=== PATIENT | male | born 1965 | race Two or more races ===

== ENCOUNTER 2018-03-06 11:30 | Inpatient (IN) | payer OTHER ==
[~2018-03-06] VITALS: Ht 172.7 cm; Wt 99.8 kg
[2018-03-13] MEDS ORDERED: NKM (11:32)
[2018-03-16] VITALS (10 sets, daily range): BP systolic 94–149; BP diastolic 56–90
[2018-03-16] MEDS ORDERED: ceFAZolin sod 2 GM in D5W 110 ML IVPB SCH (07:00)
[2018-03-16] MEDS ORDERED: Succinylcholine 20mg/ml 10ml vial ONE (07:00)
[2018-03-16] MEDS ORDERED: Zemuron 50mg/5ml Inj IV ONE (07:00)
[2018-03-16] MEDS ORDERED: EPINEPHrine 1mg/1ml Amp ONE ×2 (07:10→08:42)
[2018-03-16] MEDS ORDERED: Thrombin 5000 units spray kit TOPIC ONE (07:10)
[2018-03-16] MEDS ORDERED: Thrombin 5000 units TOPIC ONE (07:11)
[2018-03-16] MEDS ORDERED: Bacitracin 50000 Units Vial ONE (07:11)
[2018-03-16] MEDS ORDERED: Bupivacaine 0.5% Inj 30 ml vial INJ ONE ×2 (07:11→08:42)
[2018-03-16] MEDS ORDERED: Gelfoam Absorbable 1gm powder pkt TOPIC ONE (07:11)
[2018-03-16] MEDS ORDERED: fentaNYL 100 mcg/2 mL IV ONE (07:14)
[2018-03-16] MEDS ORDERED: Midazolam 2mg/2ml Inj ONE (07:14)
--- NOTE | 2018-03-16 07:29 | Pre-Procedure Note/Attestation ---
Pre-Procedure Note/Attestation Complete Prior to Procedure Procedure Narrative: Left L5S1 microdecompression with foraminotomies Attestation I attest that I discussed the nature of the procedure; its benefits; risks and complications; and alternatives (and the risks and benefits of such alternatives ), prior to the procedure, with the patient (or the patient's legal administrative representative). I attest that, if there was a reasonable possibility of needing a blood transfusion, the patient (or the patient's legal administrative representative) was given the [facility] standardized written summary, pursuant to the Jeff Dea Blood Safety Act ([place] Health and Safety Code # 1645, as amended). I attest that I re-evaluated the patient just prior to the surgery and that there has been no change in the patient's H&P, except as documented below: Zachariah Mendoza MD Mar 16, 2018 07:29
[2018-03-16] MEDS ORDERED: Morphine Sulfate 2mg/ml Inj IV PRN (07:30)
[2018-03-16] MEDS ORDERED: Norco 5mg/325mg tab ORAL PRN (07:30)
[2018-03-16] MEDS ORDERED: Morphine Sulfate 4mg/ml Inj IV PRN ×2 (07:30)
[2018-03-16] MEDS ORDERED: Naloxone 0.4mg/ml Inj IVP PRN (07:30)
[2018-03-16] MEDS ORDERED: HYDROcodone/Acetamin 7.5/325 tab ORAL PRN ×2 (07:30)
[2018-03-16] MEDS ORDERED: Vancomycin 1gm inj IVPB ONE (07:30)
[2018-03-16] MEDS ORDERED: Morphine Sulfate 10mg/ml Inj ONE (08:20)
[2018-03-16] MEDS ORDERED: Sodium Chloride 10ml vial INJ ONE (08:20)
[2018-03-16] MEDS ORDERED: Neostigmine 1mg/ml 10ml Inj ONE (08:36)
[2018-03-16] MEDS ORDERED: Glycopyrrolate 0.2mg/ml 1ml Vial ONE (08:36)
[2018-03-16] MEDS ORDERED: Ketorolac 30mg Inj ONE (08:36)
--- NOTE | 2018-03-16 08:50 | Anethesia Preoperative Eval ---
Anesthesia Pre-op PMH/ROS General Date of Evaluation: Mar 16, 2018 Time of Evaluation: 07:20 Anesthesiologist: Angelic ASA Score: ASA 2 Mallampati Score Class I : Soft palate, uvula, fauces, pillars visible Class II: Soft palate, uvula, fauces visible Class III: Soft palate, base of uvula visible Class IV: Only hard plate visible Mallampati Classification: Class II Surgeon: Reji Diagnosis: Lumbar radiculopathy Surgical Procedure: L5-S1 laminotomy with decompression Anesthesia History: none Social History: smoking - h/o Family History: no anesthesia problems Allergies: Coded Allergies: No Known Allergies (Unverified , 03/16/18) Medications: see eMAR Past Medical History Cardiovascular: Reports: HTN - borderline; Denies: CAD, MT, valve dz, arrhythmia, other Pulmonary: Denies: asthma, COPD, BIRD, other Gastrointestinal/Genitourinary: Reports: GERD - mild; Denies: CRI, ESRD, other Neurologic/Psychiatric: Reports: other - chronic pain; Denies: dementia, CVA, depression/anxiety, TIA Endocrine: Denies: DM, hypothyroidism, steroids, other HEENT: Denies: cataract (L), cataract (R), glaucoma, [place] (L), [place] (R), other Hematology/Immune: Denies: anemia, DVT, bleeding disorder, other Musculoskeletal/Integumentary: Denies: OA, RA, DJD, DDD, edema, other Other: other - overweight PMH Narrative: as above PSxH Narrative: R ankle ORIF Anesthesia Pre-op Phys. Exam Physician Exam Last Vital Signs Date Time Temp Pulse Resp B/P (MAP) Pulse Ox O2 Delivery O2 Flow Rate FiO2 03/16/18 06:32 98.5 78 18 149/90 (109) 97 98.5 03/16/18 06:20 Room Air Constitutional: NAD Neurologic: CN 2-12 intact Cardiovascular: RRR, no M/R/G Respiratory: CTA Gastrointestinal: S/NT/ND Airway Exam Mallampati Score: Class II MO: full Neck: short ROM: full Teeth: intact Dentures: no upper, no lower Anesthesia Pre-op A/P Labs see chart Studies Pre-op Studies: EKG - NSR, CXR - WNL Risk Assessment & Plan Assessment: ASA 2 Plan: GA with ETT prone position neuromonitoring Status Change Before Surgery: No Pre-Antibiotics Drug: Ancef 2gr. Given Within 1 Hr of Incision: Yes Time Given: 08:02 Chet Atwood MD Mar 16, 2018 08:50
[2018-03-16] MEDS ORDERED: LR 1000ml 1,000 ML IVLG SCH (08:51)
[2018-03-16] MEDS ORDERED: Meperidine 50mg/ml Inj(FOR RIGORS ONLY) IV PRN (09:00)
[2018-03-16] MEDS ORDERED: Ketorolac 30mg Inj IV PRN (09:00)
[2018-03-16] MEDS ORDERED: fentaNYL 100 mcg/2 mL IV PRN (09:00)
[2018-03-16] MEDS ORDERED: DiphenhydrAMINE 50mg/ml Inj IVP PRN (09:00)
[2018-03-16] MEDS ORDERED: Acetaminophen (Non formulary) 100 ML IV SCH (09:30)
--- NOTE | 2018-03-16 10:37 | Immediate Post-Op Evaluation ---
Immediate Post-Op Evalulation Immediate Post-Op Evalulation Procedure: L5-S1 laminotomy with decompression Date of Evaluation: Mar 16, 2018 Time of Evaluation: 10:36 IV Fluids: 1400 Blood Products: none Estimated Blood Loss: 50 Urinary Output: none Blood Pressure Systolic: 104 Blood Pressure Diastolic: 56 Pulse Rate: 72 Respiratory Rate: 20 O2 Sat by Pulse Oximetry: 99 Temperature (Fahrenheit): 97.9 Pain Score (1-10): 2 Nausea: No Vomiting: No Complications none Patient Status: reacts, patent, extubated, none Chet Atwood MD Mar 16, 2018 10:37
--- NOTE | 2018-03-16 12:12 | Brief Operative Note ---
Immediate Post Operative Note Operative Note Pre-op Diagnosis: L L5s1 stenosis and radiculopathy Procedure: L L5S1 microdecompression and foraminotomy Post-op Diagnosis: same as pre-op Findings: consistent w/pre-op dx studies Surgeon: Reji Insurance Manager: Mo Anesthesiologist: Angelic Anesthesia: general Specimen: yes Complications: none Condition: stable Fluids: 1l Estimated Blood Loss: minimal - 15cc Drains: none Implant(s) used?: No Zachariah Mendoza MD Mar 16, 2018 12:12
--- NOTE | 2018-03-16 13:04 | History and Physical ---
History of Present Illness General Date patient seen: Mar 16, 2018 Present Illness HPI 53 year old male with hx of back pain, was diagnosed to have L L5s1 stenosis and radiculopathy, admitted for L L5S1 microdecompression and foraminotomy. Post operatively, he is admitted to surgical floor for post-op care. Allergies: Coded Allergies: No Known Allergies (Unverified , 03/16/18) Medication History Scheduled No Known Medications* (NKM - No Known Medications*), 0 ., (Reported) Patient History Healthcare decision maker TAN FRIED - EX - Resuscitation status Full Code Advanced Directive on File Past Medical/Surgical History Past Medical/Surgical History: (1) Lumbar radiculopathy Review of Systems All Other Systems: negative except mentioned in HPI Physical Exam General Appearance: WD/WN, no apparent distress Lines, tubes and drains: peripheral HEENT: normocephalic, atraumatic Neck: non-tender, normal alignment Respiratory/Chest: chest wall non-tender, lungs clear Breasts: no masses Cardiovascular/Chest: normal peripheral pulses Abdomen: normal bowel sounds Genitourinary/Rectal: normal genital exam Extremities: normal range of motion Last 24 Hour Vital Signs Date Time Temp Pulse Resp B/P (MAP) Pulse Ox O2 Delivery O2 Flow Rate FiO2 03/16/18 12:00 97.0 78 20 103/59 (74) 96 97.0 03/16/18 11:15 98.8 65 18 118/62 100 Nasal Cannula 3 98.8 03/16/18 11:00 65 17 115/68 100 Nasal Cannula 3 03/16/18 10:45 74 19 128/69 100 Simple Mask 6 03/16/18 10:37 208.2 72 20 99 03/16/18 10:35 78 21 123/83 99 Simple Mask 6 03/16/18 10:30 74 20 94/56 99 Simple Mask 6 03/16/18 10:26 98.2 72 24 102/59 99 Simple Mask 6 98.2 03/16/18 06:32 98.5 78 18 149/90 (109) 97 98.5 03/16/18 06:20 Room Air Intake and Output 03/15/18 03/16/18 19:00 07:00 # Voids 1 Height (Feet): 5 Height (Inches): 8.00 Weight (Pounds): 220 Medications Current Medications Medications (Trade) Dose Ordered Sig/Irasema Route PRN Reason Start Time Stop Time Status Last Admin Dose Admin Acetaminophen/ Hydrocodone Bitart (Gregory 5/325) 1 tab Q3H PRN ORAL pain score 1-3 03/16/18 07:30 03/23/18 07:29 UNV Acetaminophen/ Hydrocodone Bitart (Gregory 7.5/325) 1 tab Q3H PRN ORAL pain score 4-6 03/16/18 07:30 03/23/18 07:29 UNV Acetaminophen/ Hydrocodone Bitart (Gregory 7.5/325) 2 tab Q3H PRN ORAL pain scale 7-10 03/16/18 07:30 03/23/18 07:29 UNV Cefazolin Sodium 1 gm/Dextrose 55 ml @ 110 mls/hr EVERY 8 HOURS IV 03/16/18 14:00 03/17/18 06:29 UNV Dextrose/Sodium Chloride 1,000 ml @ 100 mls/hr Q10H IV 03/16/18 07:29 04/15/18 07:28 UNV Diphenhydramine HCl (Benadryl) 25 mg Q15M PRN IVP Itching 03/16/18 09:00 03/16/18 16:00 Docusate Sodium (Colace) 100 mg TWICE A DAY ORAL 03/16/18 09:00 04/15/18 08:59 UNV Fentanyl Citrate (Sublimaze 100 mcg/2 mL) 50 mcg Q10M PRN IV Moderate Pain (Pain Scale 4-6) 03/16/18 09:00 03/16/18 16:00 Ketorolac Tromethamine (Toradol 30mg) 30 mg Q1H PRN IV Severe Breakthru Pain (>7) 03/16/18 09:00 03/16/18 16:00 Meperidine HCl (Demerol) 25 mg Q15M PRN IV chills 03/16/18 09:00 03/16/18 16:00 Morphine Sulfate (Morphine Sulfate) 2 mg Q4H PRN IV Mild Pain (Pain Scale 1-3) 03/16/18 07:30 03/23/18 07:29 UNV Morphine Sulfate (Morphine Sulfate) 4 mg Q3H PRN IV Severe Pain (Pain Scale 7-10) 03/16/18 07:30 03/23/18 07:29 UNV Morphine Sulfate (Morphine Sulfate) 4 mg Q4H PRN IV Moderate Pain (Pain Scale 4-6) 03/16/18 07:30 03/23/18 07:29 UNV Naloxone HCl (Narcan) 0.1 mg PRN PRN IVP RR<12/min, pt unarousable 03/16/18 07:30 04/15/18 07:29 UNV Ondansetron HCl (Zofran) 4 mg Q1H PRN IVP Nausea & Vomiting 03/16/18 09:00 03/16/18 16:00 Assessment/Plan Problem List: (1) L L5S1 microdecompression Assessment/Plan symptomatic treatment post op care dvt prophylaxis. Mckenna Ramirez MD Mar 16, 2018 13:04
[2018-03-16] MEDS ORDERED: D5 1/2NS 1,000 ML IV SCH (14:00)
--- NOTE | 2018-03-16 14:19 | Diagnostic Imaging Report ---
Indication: Back pain Comparison: None Findings: Single crosstable views of the lumbar spine were obtained. Total fluoroscopic time 8.5 seconds. Instrumentation noted posterior to L5-S1. IMPRESSION: Intraoperative imaging
[2018-03-16] MEDS ORDERED: TRAMADOL HCL50 MG ORAL (15:08)
[2018-03-16] MEDS ORDERED: SOMA350 MG PO (15:09)
[2018-03-16] MEDS ORDERED: CEPHALEXIN500 MG ORAL (15:11)
[2018-03-16] MEDS ORDERED: ceFAZolin sod 1 GM in D5W 55 ML IV SCH (15:45)
[2018-03-16] MEDS ORDERED: Docusate 100mg cap ORAL SCH (18:00)
--- NOTE | 2018-03-16 23:45 | Operative Note - Dictated ---
PREOPERATIVE DIAGNOSIS: L5-S1 disk bulge with stenosis and left lower extremity radiculopathy. POSTOPERATIVE DIAGNOSIS: L5-S1 disk bulge with stenosis and left lower extremity radiculopathy. PROCEDURE PERFORMED: 1. Left L5-S1 medial facetectomy, inter-lumbar laminotomy, and foraminotomy and decompression of the exiting left L5 nerve root and the traversing left S1 nerve root. 2. Intraoperative use of microscope. 3. Intraoperative use of fluoroscopy. SURGEON: Zachariah Mendoza M.D. CAREER DEVELOPMENT DIRECTOR: Wisam Hassan M.D. ANESTHESIA: General endotracheal anesthesia. ANESTHESIOLOGIST: Chet Atwood M.D. INTRAOPERATIVE FINDINGS: Severe foraminal stenosis with the left exiting L5 nerve root and mild lateral recess stenosis with lateral recess disc bulge. EBL: 15 mL. IV FLUIDS: 1 liter of crystalloid. INDICATIONS: This is a pleasant male, who failed nonoperative treatment and options for above treatment was given. Risks, alternatives, and benefits were discussed with the patient at length. Risks include, but are not limited to, anesthesia complications including , medical complications including liver, kidney, and cardiopulmonary deficits, bleeding, infection, neurovascular injury, need for revision surgery, need for future fusion surgery, as well as other complications. The patient understood and wished to proceed. Written and verbal consent was given. DESCRIPTION OF OPERATION: The patient was brought into the operating room supine on the stretcher. Appropriate IV lines were placed by the anesthesiologist. Subsequently, a 2 g of Ancef was administered. A surgical time-out was called. Anesthesia was induced and all bony prominences were well padded. Sequential compression devices were placed on to the bilateral lower extremities. The interspace was preoperatively found via fluoroscopy and an indelible marker was used to bridger the midline at L5-S1. The patient was prepped and draped in the usual sterile fashion with chlorhexidine scrub, ChloraPrep, and Ioban draping. An incision was carried out over L5-S1. Superficial hemostasis was achieved. At this point, with monopolar cautery, a left-sided approach was made to the lamina as the paraspinal muscles were dissected off the lamina and lateral joint capsule was well preserved and a neurodiagnostic tech retractor system was set into place. A radiopaque marker was placed at the lower pedicle level and the S1 pedicle was identified and the L5-S1 interspace was positively identified. At this point, attention was diverted to doing the decompression with a high-speed drill, #2 through #5 Kerrison punches, straight and curved curettes, and inter-lumbar laminotomy medial facetectomy was done. The ligamentum flavum was hypertrophied and removed. There was significant hypertrophy of the superior articular facet with severe foraminal stenosis as well as lateral recess stenosis with the traversing S1 nerve root. A complete decompression here was done with the use of #1 Kerrison punches as well as Microsect #1 and #2 instruments with dental, the foramina was checked back after decompression and was found to be patent the L5 nerve was now free. The S1 nerve was free. The floor of the canal was checked due to the disk bulge and after the lateral recess and foraminal decompression was no longer causing any impingement on the neural elements and therefore a formal diskectomy was not necessary. Valsalva was done at 40 mmHg. There was no CSF leak. The wound was copiously irrigated with triple antibiotic solution. Attention was now diverted to closure. A 1 g of vancomycin powder was placed subfascially and suprafascially. The dorsal lumbar fascia was closed with #1 Vicryl sutures in a watertight interrupted fashion. The subdermal and subcuticular layers were closed with 2-0 Vicryl sutures. The skin was closed with Dermabond. Sterile dressing tape was placed. The patient was turned supine, was extubated in stable condition, and was found to be neurovascularly intact. He was given a prescription for [place] and Naprosyn as well as a postoperative appointment in 10 days. Zachariah Mendoza M.D. DR: ALFONSO JOB#: [id number] CC:
[2018-03-17 08:28] VITALS: BP 137/85
--- NOTE | 2018-03-17 08:28 | 48 Hour Post Anesthesia Eval ---
Post Anesthesia Evaluation Procedure: L5-S1 laminotomy with decompression Date of Evaluation: Mar 17, 2018 Blood Pressure Systolic: 137 0: 85 Pulse Rate: 82 Respiratory Rate: 20 Temperature (Fahrenheit): 97.4 O2 Sat by Pulse Oximetry: 96 Airway: patent Nausea: No Vomiting: No Pain Intensity: 2 Hydration Status: adequate Cardiopulmonary Status: No complication Mental Status/LOC: patient returned to baseline Follow-up Care/Observations: As per surgery. Patient has been discharged Post-Anesthesia Complications: No anesthetic complication Follow-up care needed: N/A Jeff Mcleod MD Mar 17, 2018 08:28
--- NOTE | 2018-03-19 06:59 | Discharge Summary ---
Discharge Summary Hospital Course Date of Admission Mar 16, 2018 at 05:57 Date of Discharge Mar 16, 2018 at 18:35 Admitting Diagnosis lumbar radiculopathy Reason for Hospitalization: Elective surgery PACO Lala is a 53 year old male who was admitted on Mar 16, 2018 at 05:57 for Lumbar Radiculopathy. Patient was admitted for elective surgery Consultations Dr. Ramirez-IM Procedures s/p 03/15/[address] Mendoza 1. Left L5-S1 medial facetectomy, inter-lumbar laminotomy, and foraminotomy and decompression of the exiting left L5 nerve root and the traversing left S1 nerve root. 2. Intraoperative use of microscope. 3. Intraoperative use of fluoroscopy. Hospital Course s/p surgery Course of recovery uneventful neurovascularly intact dressing clean dry and intact pain management addressed, pain controlled ambulated with physical therapy, fall precaution maintained, initially IV fluids diet as tolerated, able to tolerate voided freely bowel regimen instituted spinal precautions reviewed stable for discharge home discharge instruction provided outpatient follow-up with surgeon as advised FINAL DIAGNOSES L5-S1 lumbar radiculopathy severe foraminal stenosis s/p L5-S1 laminotomy with decompression Discharge Medications Continued Medications: Carisoprodol* (Soma*) 350 Mg Tablet 350 MG PO TID PRN for Spasms, #30 TAB (This prescription has been renewed) Cephalexin* (Keflex*) 500 Mg Capsule 500 MG ORAL QID for 5 Days, #20 CAP 0 Refills (This prescription has been renewed) Tramadol Hcl* (Ultram*) 50 Mg Tablet 50 MG ORAL Q4HR PRN for For Pain, #40 TAB 0 Refills (This prescription has been renewed) Discharge Condition Upon Discharge: stable Discharge Disposition Patient was discharged to Home () Discharge Instructions Discharge Instructions Special Instructions I have been assigned to complete a D/C Summary on this account. I was not involved in the patient management Haley Gentile NP Mar 19, 2018 06:59
== END 2018-03-16 18:35 | disposition home or self-care (01) | DRG 517 ==
LOC: SDSOVERFLO 03-16 05:57 → 3E 03-16 11:44
PROC: 01NB0ZZ Release Lumbar Nerve, Open Approach (ICD-10-PCS; principal; 2018-03-16 07:30)
DX: M48.061 Spinal stenosis, lumbar region without neurogenic claudication (principal); M54.16 Radiculopathy, lumbar region; K21.9 Gastro-esophageal reflux disease without esophagitis; I10 Essential (primary) hypertension
CPT/HCPCS: 72020; 76001; 87081; 94003; 94150; J2250; J2710